=== PATIENT | female | born 1990 | race Caucasian/White ===

== ENCOUNTER 2020-07-19 11:17 | Emergency (ER) | payer OTHER | END 2020-07-19 14:05 | disposition home or self-care (01) | LOC: JVIRT 11:17 | DX: U07.1 COVID-19 (principal) | CPT/HCPCS: C9803; G2251-GT; Q3014-GT; U0003 ==

== ENCOUNTER 2024-03-23 11:41 | Emergency (ER) | payer OTHER ==
[2024-03-23 11:48] VITALS: BMI 39.1
[2024-03-23] MEDS ORDERED: ACETAMINOPHEN INJECTION 100 ML ONE (12:01)
[2024-03-23] MEDS ORDERED: PSEUDOEPHEDRINE HCL 30 MG TABLET ONE (12:14)
[2024-03-23] MEDS: PSEUDOEPHEDRINE HCL 30 MG TABLET PO ONE (12:24)
[2024-03-23] MEDS: SODIUM CHLORIDE 0.9% 500 ML INFUS.BAG IV ONE (12:24)
[2024-03-23] MEDS: ACETAMINOPHEN 1000 MG/100 ML BAG IVPB ONE (12:24)
[2024-03-23 13:04] LABS: HEMATOCRIT 43.6 % (32.4-45.2); HEMOGLOBIN 14.6 G/dL (10.7-15.3); MCH 27.6 pg (25.7-33.7); MCHC 33.5 g/dl (32.0-36.0); MEAN CELL VOLUME 82.2 fl (80-96); MEAN PLT VOLUME 8.7 fl (7.5-11.1); PLATELET COUNT 336.2 10^3/uL (134-434); RDW 13.8 % (11.6-15.6); WHITE BLOOD COUNT 6.3 10^3/uL (4.0-10.8)
[2024-03-23 13:12] LABS: PLATELET ESTIMATE ADEQUATE
[2024-03-23 13:14] LABS: ALBUMIN 4.4 g/dl (3.4-5.0); BILIRUBIN,TOTAL 0.3 mg/dl (0.2-1); CALCIUM 9.8 mg/dl (8.5-10.1); CREATININE 0.7 mg/dl (0.6-1.3); MAGNESIUM 1.9 mg/dL (1.8-2.4); POTASSIUM 3.9 mmol/L (3.5-5.1); TOT PROT 7.7 g/dl (6.4-8.2)
[2024-03-23 13:23] LABS: URINE MUCUS MODERATE
[2024-03-23 13:35] VITALS: BP 115/83; PULSE 92; RESP 16; TEMP 97.7
[2024-03-23 16:17] LABS: HIV INTERPRETATION NEGATIVE (NEGATIVE)
== END 2024-03-23 13:51 | disposition home or self-care (01) ==
LOC: FER 11:41
PROC: 3E033NZ Introduction of Analgesics, Hypnotics, Sedatives into Peripheral Vein, Percutaneous Approach (ICD-10-PCS; principal; 2024-03-23)
DX: R42 Dizziness and giddiness (principal); J98.8 Other specified respiratory disorders; Z20.822 Contact with and (suspected) exposure to COVID-19
CPT/HCPCS: 0241U-QW; 36415; 80053; 81003; 81015; 83735; 84703; 85027; 86803; 87389; 93005; 99284-25; J0131